=== PATIENT | female | born 1945 | race Caucasian/White ===

== ENCOUNTER 2017-11-17 05:45 | Day surgery (SDC) | payer MEDICARE, BC ==
[2017-11-17] MEDS ORDERED: LIDOCAINE 1% (MPF) 30 ML INJ (06:48)
[2017-11-17] MEDS ORDERED: ETOMIDATE 20 MG INJ (07:30)
[2017-11-17] MEDS ORDERED: FENTAnyl 50 MCG/ML VIAL (07:31)
[2017-11-17] MEDS ORDERED: LIDOCAINE 1% (MDV) 20 ML INJ (07:31)
[2017-11-17] MEDS ORDERED: MIDAZOLAM 1 MG/ML 2 ML INJ (07:31)
[2017-11-17] MEDS ORDERED: ESMOLOL 0 ML (07:39)
[2017-11-17] MEDS ORDERED: DEXAMETHASONE 4 MG/ML 1 ML INJ (07:47)
[2017-11-17] MEDS ORDERED: ONDANSETRON 4 MG INJ ×2 (07:47→09:07)
[2017-11-17] MEDS ORDERED: CEFAZOLIN 1 GM INJ (07:47)
[2017-11-17] MEDS ORDERED: FAMOTIDINE 20 MG INJ (07:47)
[2017-11-17] MEDS: BUPIVACAINE 0.5% (SDV) 30 ML INJ (08:07)
[2017-11-17] MEDS ORDERED: ACETAMINOPHEN 1000MG/100ML IV 100 ML (08:58)
[2017-11-17] MEDS ORDERED: DIPHENHYDRAMINE 50 MG INJ (08:58)
[2017-11-17] MEDS ORDERED: HYDROmorphONE (0.2 MG/ML) 10ML SYG IV (09:02)
[2017-11-17] MEDS: HYDROmorphONE (0.2 MG/ML) 10ML SYG IV ×3 (09:14→09:52)
[2017-11-17] MEDS: ONDANSETRON 4 MG INJ IV (09:14)
[2017-11-17] MEDS: hydrALAzine 20 MG INJ IV (09:18)
== END 2017-11-17 11:10 | disposition home or self-care (01) ==
LOC: SDS 05:45
DX: M67.432 Ganglion, left wrist (principal); G56.02 Carpal tunnel syndrome, left upper limb; G56.22 Lesion of ulnar nerve, left upper limb; M19.032 Primary osteoarthritis, left wrist; E78.5 Hyperlipidemia, unspecified; I10 Essential (primary) hypertension; I48.0 Paroxysmal atrial fibrillation
CPT/HCPCS: 25111; 88304